=== PATIENT | male | born 1960 | race Caucasian/White ===

== ENCOUNTER 2018-05-10 07:10 | Day surgery (SDC) | payer BC, OTHER ==
[2018-05-10] MEDS ORDERED: Propofol 200 MG/20 ML SDV IV ONE (07:11)
[2018-05-10] MEDS ORDERED: Sodium Chloride 0.9% 10 ML Syringe FLUSH PRN (07:25)
[2018-05-10] MEDS ORDERED: Lactated Ringers 1,000 ML IV SCH (07:25)
--- NOTE | 2018-05-10 09:48 | PCM.OPNOTE ---
- General Post-Op/Procedure Note Date of Surgery/Procedure: 05/10/18 Operative Procedure(s): c scope Findings: normal exam Pre Op Diagnosis: screening for colon cancer Post-Op Diagnosis: Same Anesthesia Technique: MAC Primary Surgeon: Scot Curiel Anesthesia Provider: Juancho Alonso Pathology: none Complications: None Condition: Good Free Text/Narrative:: see dictation
--- NOTE | 2018-05-10 10:36 | OR ---
DATE OF OPERATION: 05/10/2018 SURGEON: Scot Curiel MD PROCEDURE PERFORMED: Colonoscopy. PREOPERATIVE DIAGNOSIS: Need for screening colonoscope. POSTOPERATIVE DIAGNOSIS: Normal colon. INDICATIONS FOR PROCEDURE: This is a 58-year-old white male who presents for his initial screening C-scope. He was offered and accepted the same. DESCRIPTION OF OPERATION: After an excellent IV sedation was administered, digital rectal exam was performed. No marked abnormality was noted. Flexible colonoscope was inserted and advanced to the cecum. Prep was excellent. The following findings were noted. Ascending colon, unremarkable. Transverse colon, unremarkable. Descending colon, unremarkable. Sigmoid and rectum, unremarkable. Colon was deflated. Scope was removed. RECOMMENDATIONS: Repeat scope in 10 years. /[id number] /SALVATOREL
[2018-05-10 10:57] VITALS: BP 148/94
== END 2018-05-10 10:58 | disposition home or self-care (01) ==
LOC: FB.SDS 07:10
PROVIDERS: ATTEND Surgery
DX: Z12.11 Encounter for screening for malignant neoplasm of colon (principal); I25.10 Atherosclerotic heart disease of native coronary artery without angina pectoris; G47.30 Sleep apnea, unspecified; E78.00 Pure hypercholesterolemia, unspecified; G40.909 Epilepsy, unspecified, not intractable, without status epilepticus; I26.99 Other pulmonary embolism without acute cor pulmonale; Z79.2 Long term (current) use of antibiotics; Z79.899 Other long term (current) drug therapy; Z79.82 Long term (current) use of aspirin
CPT/HCPCS: 45378; 93005; J2001; J2704; J7120

== ENCOUNTER 2018-09-09 12:55 | Emergency (ER) | payer OTHER ==
[2018-09-09] MEDS: Nitroglycerin 0.4 MG Tab.SL SL PRN ×3 (13:20→13:42)
[2018-09-09] MEDS ORDERED: Sodium Chloride 0.9% 1,000 ML IV SCH (13:20)
[2018-09-09] MEDS ORDERED: Sodium Chloride 0.9% 10 ML Syringe FLUSH PRN ×2 (13:28→13:42)
[2018-09-09] MEDS ORDERED: Aspirin 81 MG Tab.Chew PO ONE (13:28)
[2018-09-09] MEDS ORDERED: Heparin Sodium 5,000 Units/ML Vial IVPUSH ONE (13:49)
[2018-09-09] MEDS ORDERED: Heparin Sodium/0.45% NaCl 25,000 UNITS/500 ML BAG IV ONE (13:52)
[2018-09-09] MEDS ORDERED: Heparin Sodium 5,000 Units/ML Vial ONE (13:55)
[2018-09-09] MEDS ORDERED: Nitroglycerin/D5W 25 MG/250 ML BOTTLE IV SCH (14:00)
--- NOTE | 2018-09-09 14:50 | EDM.PDOC ---
ED HPI GENERAL MEDICAL PROBLEM - General Chief Complaint: Chest Pain Stated Complaint: SOB, CHEST PAIN Time Seen by Provider: 09/09/18 13:25 Source of Information: Reports: Patient, Family History Limitations: Reports: No Limitations - History of Present Illness INITIAL COMMENTS - FREE TEXT/NARRATIVE: 58-year-old male with history of coronary artery disease with recent angioplasty and stent placement 3 at the beginning of August who reports that since he has in home following the stent placement he has had fatigue and he has had dyspnea on exertion in that he avoids going up hills because of shortness of breath and some chest tightness that he develops with this. Yesterday he felt more fatigued than usual but no chest discomfort or shortness of breath and this morning when he awoke at 5 AM he was feeling more fatigued with some feelings of shortness of breath. At approximately 8 AM today while doing some work, he developed a tightness across his chest that did not seem to go away with rest and it has progressively worsened since that time to become associated with worse difficulty breathing. He also reports that his symptoms progressed to the point that he felt near syncopal. His brother took him home from work and they called the stone engraver at [facility] and they told him to come to the emergency department for evaluation. On arrival here, he reports his chest is about a 5/10. There is no radiation to his back, neck or arms. He also feels somewhat short of breath even at rest. No diaphoresis. Mild nausea earlier associated with his near syncopal period. No nausea now and no vomiting. He has had an IV established, has been given aspirin by mouth and has been given one sublingual nitroglycerin. While I am in the room evaluating the patient, he reports that his pain has increased to a 7/10. His EKG was repeated at this point and we continued giving sublingual nitroglycerin. There are no other associated signs or symptoms. There are no other modifying factors. Onset: Other (Yesterday with worsening fatigue and today at 8 AM with chest tightness that has progressively worsened.) Duration: Getting Worse Location: Reports: Chest Quality: Reports: Ache, Pressure Severity: Moderate Improves with: Reports: None Worsens with: Reports: Movement (/Activity) Context: Reports: Activity, Other (But now at rest with same symptoms) L anterior chest Pain Score (Numeric/FACES): 7 - Related Data Allergies Allergy/AdvReac Type Severity Reaction Status Date / Time No Known Allergies Allergy Verified 09/09/18 13:17 Home Meds: Home Meds Acetaminophen [Tylenol Extra Strength] 1,000 mg PO ASDIRECTED PRN 06/22/15 [ History] Aspirin [Ecotrin EC] 325 mg PO DAILY 06/22/15 [History] Citalopram [Citalopram HBr] 40 mg PO DAILY 06/22/15 [History] LORazepam 0.5 mg PO TID PRN 06/22/15 [History] Lurasidone HCl [Latuda] 160 mg PO DAILY@1800 06/22/15 [History] Multivitamin [Men's Multi-Vitamin] 1 tab PO DAILY 06/22/15 [History] carBAMazepine [TEGretol XR] 600 mg PO BID 06/22/15 [History] Citalopram [Citalopram HBr] 20 mg PO DAILY 05/08/18 [History] Haloperidol [Haldol] 0.5 mg PO DAILY 05/08/18 [History] Metoprolol Succinate [Toprol Xl] 50 mg PO DAILY 05/08/18 [History] Nitroglycerin [Nitrostat] 0.4 mg PO ASDIRECTED PRN 05/08/18 [History] Pantoprazole 20 mg PO DAILY 05/08/18 [History] Polyethylene Glycol 3350 [MiraLAX] 17 gm PO TID PRN 05/08/18 [History] atorvaSTATin Calcium [Atorvastatin Calcium] 80 mg PO DAILY 05/08/18 [History] Aspirin 81 mg PO DAILY 05/10/18 [History] Calcium Carb/Magnesium Hydrox [Rolaids Chewable Tablet] 1 ea PO ASDIRECTED PRN 05/10/18 [History] Clopidogrel [Plavix] 75 mg PO DAILY 09/09/18 [History] cloZAPine 600 mg PO BEDTIME 09/09/18 [History] Past Medical History HEENT History: Reports: Impaired Vision Cardiovascular History: Reports: Blood Clots/VTE/DVT (History of PEs), Bypass, CAD, High Cholesterol, Hypertension, Stents Respiratory History: Reports: PE, Sleep Apnea Gastrointestinal History: Reports: Bowel Obstruction, Chronic Constipation, Other (See Below) Other Gastrointestinal History: adhesions Musculoskeletal History: Reports: Back Pain, Chronic Neurological History: Reports: Seizure, Other (See Below) Other Neuro History: epilepsy Psychiatric History: Reports: Anxiety, Depression, Psych Hospitalization(s), Psychosis, Schizophrenia Other Psychiatric History: psychisis, Endocrine/Metabolic History: Reports: Obesity/BMI 30+ - Infectious Disease History Infectious Disease History: Reports: Measles, Mumps - Past Surgical History Cardiovascular Surgical History: Reports: Coronary Artery Bypass, Coronary Artery Stent Other Cardiovascular Surgeries/Procedures: 4 vessel bypass 2015, 3 stents August GI Surgical History: Reports: Cholecystectomy, Colon, Colonoscopy, Hernia Repair /Other, Lysis of Adhesions Other GI Surgeries/Procedures: exp lap with CRYSTAL Neurological Surgical History: Reports: None Musculoskeletal Surgical History: Reports: None Social & Family History - Family History Family Medical History: Noncontributory HEENT: Reports: Macular Degeneration Cardiac: Reports: GA Respiratory: Reports: Asthma GI: Reports: None : Reports: None OBGYN: Reports: None Musculoskeletal: Reports: None Neurological: Reports: CVA Psychiatric: Reports: None Endocrine/Metabolic: Reports: None Hematologic: Reports: None Immunologic: Reports: None Dermatologic: Reports: None Oncologic: Reports: None - Tobacco Use Smoking Status *Q: Never Smoker - Caffeine Use Caffeine Use: Reports: Coffee, Soda Other Caffeine Use: PILLS - Alcohol Use Alcohol Use History: Yes Alcohol Use Frequency: Rarely - Recreational Drug Use Recreational Drug Use: No - Living Situation & Occupation Occupation: Employed (Works in a factory) Social History Comment: Here with and [id number]. ED ROS GENERAL - Review of Systems Review Of Systems: See Below Constitutional: Reports: Weakness, Fatigue HEENT: Reports: No Symptoms Respiratory: Reports: Shortness of Breath Cardiovascular: Reports: Chest Pain, Dyspnea on Exertion GI/Abdominal: Reports: Nausea. Denies: Vomiting : Reports: No Symptoms Musculoskeletal: Reports: No Symptoms Skin: Reports: No Symptoms Neurological: Reports: Other (Near syncope) Hematologic/Lymphatic: Reports: No Symptoms Immunologic: Reports: No Symptoms ED EXAM, GENERAL - Physical Exam Exam: See Below Exam Limited By: No Limitations General Appearance: Alert, WD/WN, Moderate Distress Eye Exam: Bilateral Eye: EOMI, Normal Inspection, PERRL Ears: Normal External Exam Ear Exam: Bilateral Ear: Auricle Normal Nose: Normal Inspection, Normal Mucosa, No Blood Throat/Mouth: Normal Inspection, Normal Oropharynx, Normal Voice, No Airway Compromise Head: Atraumatic, Normocephalic Neck: Normal Inspection, Supple, Non-Tender, Full Range of Motion Respiratory/Chest: No Respiratory Distress, Lungs Clear, Normal Breath Sounds, No Accessory Muscle Use, Chest Non-Tender Cardiovascular: Normal Peripheral Pulses, Regular Rate, Rhythm, No Gallop, No JVD Peripheral Pulses: 2+: Radial (L), Radial (R) GI/Abdominal: Normal Bowel Sounds, Soft, Non-Tender, No Distention, No Mass Back Exam: Normal Inspection Extremities: Normal Inspection, Normal Range of Motion, Non-Tender, No Pedal Edema, Normal Capillary Refill Neurological: Alert, Oriented, CN II-XII Intact, Normal Cognition, No Motor/ Sensory Deficits Psychiatric: Flat Affect Skin Exam: Warm, Dry, Intact, Normal Color, No Rash EKG INTERPRETATION EKG Date: 09/09/18 Time: 13:06 Rhythm: NSR Rate (Beats/Min): 73 [place]: Normal P-Wave: Present (Left atrial enlargement) QRS: Normal ST-T: Depressed QT: Prolonged Comparison: No Change (Compared to EKG performed on 04/2018, the ST segment depression and T-wave inversion in the lateral and inferior leads is maybe slightly worse.) EKG Interpretation Comments: Repeat EKG performed at 1:43 PM: Normal sinus rhythm with a rate of 72. There is a normal axis. There is a prolonged QTC. The ST segment oppression and inversions laterally and inferiorly seemed to be improved from the previous EKG performed on the same day. Course - Vital Signs Last Recorded V/S: Last Vital Signs Temp 36.6 C 09/09/18 13:00 Pulse 65 09/09/18 15:45 Resp 15 09/09/18 15:45 BP 144/85 H 09/09/18 15:45 Pulse Ox 99 09/09/18 15:45 - Orders/Labs/Meds Orders: Active Orders 24 hr Category Date Time Status EKG Documentation Completion [RC] ASDIRECTED Care 09/09/18 13:44 Active EKG Documentation Completion [RC] ASDIRECTED Care 09/09/18 15:17 Active Chest 1V Frontal [CR] Stat Exams 09/09/18 13:42 Taken Peripheral IV Insertion Adult [OM.PC] Routine Oth 09/09/18 13:42 Ordered EKG 12 Lead [EK] Routine Ther 09/09/18 13:00 Ordered EKG 12 Lead [EK] Routine Ther 09/09/18 13:45 Ordered EKG 12 Lead [EK] Routine Ther 09/09/18 15:16 Ordered Labs: Laboratory Tests 09/09/18 09/09/18 09/09/18 Range/Units 13:15 13:15 13:15 WBC 7.1 (4.5-12.0) X10-3/uL RBC 4.20 L (4.30-5.75) x10(6)uL Hgb 13.9 (13.5-17.8) g/dL Hct 39.7 (30.0-51.3) % MCV 94.4 (80-96) fL MCH 33.0 (27.7-33.6) pg MCHC 35.0 (32.2-35.4) g/dL RDW 12.9 (11.5-15.5) % Plt Count 264 (125-369) X10(3)uL MPV 7.4 (7.4-10.4) fL Neut % (Auto) 65.8 (46-82) % Lymph % (Auto) 23.5 (13-37) % [place] % (Auto) 7.2 (4-12) % Eos % (Auto) 3 (1.0-5.0) % Baso % (Auto) 0 (0-2) % Neut # (Auto) 4.7 (1.6-8.3) # Lymph # (Auto) 1.7 (0.6-5.0) # Gillespie # (Auto) 0.5 (0.0-1.3) # Eos # (Auto) 0.2 (0.0-0.8) # Baso # (Auto) 0.0 (0.0-0.2) # PT 9.9 (8.7-11.1) INR 1.02 (0.89-1.13) APTT 24.3 L (24.4-33.2) SECONDS Sodium 135 (135-145) mmol/L Potassium 4.0 (3.5-5.3) mmol/L Chloride 101 (100-110) mmol/L Carbon Dioxide 24 (21-32) mmol/L BUN 16 (7-18) mg/dL Creatinine 1.1 (0.70-1.30) mg/dL Est Cr Clr Drug Dosing 81.72 mL/min Estimated GFR (MDRD) > 60 (>60) BUN/Creatinine Ratio 14.5 (9-20) Glucose 122 H (80-116) mg/dL Calcium 8.6 (8.6-10.2) mg/dL Magnesium 1.8 (1.8-2.5) mg/dL Total Bilirubin 0.3 (0.1-1.3) mg/dL AST 35 H (5-25) IU/L ALT 36 (12-36) U/L Alkaline Phosphatase 141 H (56-112) IU/L Troponin I (<0.017-0.056) ng/mL NT-Pro-B Natriuret Pep (<=125) pg/mL Total Protein 7.0 (6.0-8.0) g/dL Albumin 3.5 (3.5-5.2) g/dL Globulin 3.5 g/dL Albumin/Globulin Ratio 1.0 Carbamazepine 12.4 H (<0.5) ug/mL 09/09/18 Range/Units 13:15 WBC (4.5-12.0) X10-3/uL RBC (4.30-5.75) x10(6)uL Hgb (13.5-17.8) g/dL Hct (30.0-51.3) % MCV (80-96) fL MCH (27.7-33.6) pg MCHC (32.2-35.4) g/dL RDW (11.5-15.5) % Plt Count (125-369) X10(3)uL MPV (7.4-10.4) fL Neut % (Auto) (46-82) % Lymph % (Auto) (13-37) % Gilles[place] % (Auto) (4-12) % Eos % (Auto) (1.0-5.0) % Baso % (Auto) (0-2) % Neut # (Auto) (1.6-8.3) # Lymph # (Auto) (0.6-5.0) # Gillespie # (Auto) (0.0-1.3) # Eos # (Auto) (0.0-0.8) # Baso # (Auto) (0.0-0.2) # PT (8.7-11.1) INR (0.89-1.13) APTT (24.4-33.2) SECONDS Sodium (135-145) mmol/L Potassium (3.5-5.3) mmol/L Chloride (100-110) mmol/L Carbon Dioxide (21-32) mmol/L BUN (7-18) mg/dL Creatinine (0.70-1.30) mg/dL Est Cr Clr Drug Dosing mL/min Estimated GFR (MDRD) (>60) BUN/Creatinine Ratio (9-20) Glucose (80-116) mg/dL Calcium (8.6-10.2) mg/dL Magnesium (1.8-2.5) mg/dL Total Bilirubin (0.1-1.3) mg/dL AST (5-25) IU/L ALT (12-36) U/L Alkaline Phosphatase (56-112) IU/L Troponin I 0.019 (<0.017-0.056) ng/mL NT-Pro-B Natriuret Pep 468 H (<=125) pg/mL Total Protein (6.0-8.0) g/dL Albumin (3.5-5.2) g/dL Globulin g/dL Albumin/Globulin Ratio Carbamazepine (<0.5) ug/mL Meds: Medications Discontinued Medications Generic Name Dose Route Start Last Admin Trade Name Joshuaq PRN Reason Stop Dose Admin Aspirin 243 mg 09/09/18 13:28 09/09/18 13:31 Aspirin PO 09/09/18 13:29 243 mg ONETIME ONE Administration Heparin Sodium (Porcine) 4,000 units 09/09/18 13:49 09/09/18 14:07 Heparin Sodium IVPUSH 09/09/18 13:50 4,000 units .BOLUS ONE Administration Heparin Sodium (Porcine) Confirm 09/09/18 13:55 09/09/18 14:13 Heparin Sodium Administered 09/09/18 13:56 Not Given Dose 5,000 units .ROUTE .STK-MED ONE Sodium Chloride 1,000 mls @ 0 mls/hr 09/09/18 13:20 09/09/18 13:25 Normal Saline IV 09/13/18 13:29 30 mls/hr ASDIRECTED ALEJANDRO Administration KVO Heparin Sodium/Sodium Chloride 25,000 units in 500 mls @ 20.018 mls/hr 13:52 09/09/18 14:10 Heparin 25,000 Units In 1/2 Ns 500 Ml IV 09/10/18 14:50 9.43 units/kg/hr ONETIME ONE 20.018 mls/hr Administration 9.43 UNITS/KG/HR Nitroglycerin/Dextrose 25 mg in 250 mls @ 6 mls/hr 09/09/18 14:00 09/09/18 14 :12 Nitroglycerin 25 Mg/D5w 250 Ml IV 5 mcg/min TITRATE ALEJANDRO 3 mls/hr Administration Protocol 10 MCG/MIN Nitroglycerin 0.4 mg 09/09/18 13:29 09/09/18 13:42 Nitrostat SL 0.4 mg Q5M PRN Administration Chest Pain Sodium Chloride 10 ml 09/09/18 13:28 Saline Flush FLUSH ASDIRECTED PRN Keep Vein Open Sodium Chloride 10 ml 09/09/18 13:42 Saline Flush FLUSH ASDIRECTED PRN Keep Vein Open - Radiology Interpretation Free Text/Narrative:: Portable chest x-ray shows some increased pulmonary vascularity. - Re-Assessments/Exams Free Text/Narrative Re-Assessment/Exam: 09/09/18 14:13: Patient is currently chest pain-free. This is after the patient has been given 3 sublingual nitroglycerin and placed on a nitroglycerin drip at 5 mcg/m and is remaining chest pain-free with this. His blood pressure is improved and he is feeling much better he appears more bright and interactive. 09/09/18 14:35: Patient remains chest pain-free. He has been vitally stable. No more shortness of breath. No weakness or dizziness. No nausea. With the patient having dynamic EKG changes, recent angioplasty with stents 3 and 2 lesions that were reported to be potential problems for the future and with his chest pain pattern consistent with an acute coronary syndrome, I feel that he will need admission and he will need cardiology specially services which are not available at [facility] and will need to be transferred for those services. His stone engraver is through [facility] in [place] and the family would want me to discuss the patient's case with [facility]. 09/09/18 14:50: I discussed patient's case with Dr. Warren, hospitalist at [facility] in [place], and he has agreed to accept the patient in transfer. The patient is currently on a nitroglycerin drip and a heparin drip via ACS guidelines. He has been given a heparin bolus of 4000 units and has been given aspirin 243 mg by mouth. He remains chest pain-free at this point. His vitally stable. He will be transferred to [facility] via ambulance for direct admission. Departure - Departure Time of Disposition: 15:20 Disposition: DC/Tfer to [facility] 02 Reason for Transfer *Q: Other (Acute coronary syndrome with recent angioplasty and stents and 2 remaining lesions of some concern that were not addressed at the beginning of this month.) Condition: Critical (Guarded) Clinical Impression: Acute coronary syndrome, Mild congestive heart failure, Acute electrocardiogram changes Referrals: Tnaner Banda MD [Primary Care Provider] - Forms: ED Department Discharge - My Orders Last 24 Hours: My Active Orders 09/09/18 13:00 EKG 12 Lead [EK] Routine 09/09/18 13:42 Chest 1V Frontal [CR] Stat Peripheral IV Insertion Adult [OM.PC] Routine 09/09/18 13:44 EKG Documentation Completion [RC] ASDIRECTED 09/09/18 13:45 EKG 12 Lead [EK] Routine 09/09/18 15:16 EKG 12 Lead [EK] Routine 09/09/18 15:17 EKG Documentation Completion [RC] ASDIRECTED - Assessment/Plan Last 24 Hours: My Active Orders 09/09/18 13:00 EKG 12 Lead [EK] Routine 09/09/18 13:42 Chest 1V Frontal [CR] Stat Peripheral IV Insertion Adult [OM.PC] Routine 09/09/18 13:44 EKG Documentation Completion [RC] ASDIRECTED 09/09/18 13:45 EKG 12 Lead [EK] Routine 09/09/18 15:16 EKG 12 Lead [EK] Routine 09/09/18 15:17 EKG Documentation Completion [RC] ASDIRECTED
[2018-09-09 20:13] VITALS: BP 144/85
--- NOTE | 2018-09-10 08:50 | CR ---
INDICATION: Chest pain. CHEST ONE VIEW: Two AP upright portable views of the chest were obtained and compared with 06/22/15 again revealing the heart to be normal in size and shape post median sternotomy. An active infiltrate or effusion was not identified. Overlying EKG leads are noted. IMPRESSION: No acute process. Interval CABG surgery noted. MTDD
== END 2018-09-09 16:07 ==
LOC: FB.ED 12:55
DX: I24.9 Acute ischemic heart disease, unspecified (principal); I11.0 Hypertensive heart disease with heart failure; I50.9 Heart failure, unspecified; R94.31 Abnormal electrocardiogram [ECG] [EKG]; I25.10 Atherosclerotic heart disease of native coronary artery without angina pectoris; Z95.1 Presence of aortocoronary bypass graft; Z79.82 Long term (current) use of aspirin; Z79.899 Other long term (current) drug therapy; E66.9 Obesity, unspecified; Z95.5 Presence of coronary angioplasty implant and graft; Z90.49 Acquired absence of other specified parts of digestive tract
CPT/HCPCS: 36415; 71045; 80053; 80156; 83735; 83880; 84484; 85025; 85610; 85730; 93005; 96361; 96365; 96366; 96368; 96376; 99285; A9270; J1644; J3490; J7030

== ENCOUNTER 2020-12-06 09:30 | Emergency (ER) | payer OTHER ==
--- NOTE | 2020-12-06 10:34 | EDM.PDOC ---
ED HPI GENERAL MEDICAL PROBLEM - General Chief Complaint: Syncope Stated Complaint: ??? Time Seen by Provider: 12/06/20 09:30 Source of Information: Reports: Patient, Family History Limitations: Reports: Altered Mental Status - History of Present Illness INITIAL COMMENTS - FREE TEXT/NARRATIVE: c/o syncope h/o szs, no szs for years, on carbamazepine which he has been taking regularly works at [employer] 10d ago at work he saw everything go white and was lightheaded, was send home from work, went to clinic and saw Dr Frye (PCP Dr Banda), Na 126 and advised to go on low salt diet and not to work for several days, returned to work Wed and Brandi last week (4 and 5d ago) and and co-worker reports he felt fine he went to their [place] this weekend and packed up his trailer, went to [place] yesterday, said he was fine this weekend, ate 3 meals yesterday, went to bed at 8p as usual, alarm went off at 4a today as usual, up at 4:30a, clocked into work at 6a, had oatmeal to eat and Gatorade to drink apparently was feeling okay when arrived at work, on his feet, moving pallets, he "face planted", co-worker ran out of her office and he was being dragged to a chair, no shaking, was asked "are you doing okay", after 10-15 seconds he slowly said "I am okay" no vitals obtained at scene lost 30 lbs in 3m here with and co-worker confused here, gets times mixed up, answers slowly, appears postictal no definite sxs here, holding hand across epigastrium, gives a vague c/o stomach "feeling on edge", denies pain, no f/c/d, no n/v, no sob has had COVID vax, never had COVID has had CABG x 4 3y ago, has had stent x 2 since then - Related Data Allergies Allergy/AdvReac Type Severity Reaction Status Date / Time No Known Allergies Allergy Verified 09/09/18 13:17 Home Meds: Home Meds Acetaminophen [Tylenol Extra Strength] 1,000 mg PO ASDIRECTED PRN 06/22/15 [History] Aspirin [Ecotrin EC] 325 mg PO DAILY 06/22/15 [History] Citalopram [Citalopram HBr] 40 mg PO DAILY 06/22/15 [History] LORazepam 0.5 mg PO TID PRN 06/22/15 [History] Lurasidone [Latuda] 160 mg PO DAILY@1800 06/22/15 [History] Multivitamin [Men's Multi-Vitamin] 1 tab PO DAILY 06/22/15 [History] carBAMazepine [TEGretol XR] 600 mg PO BID 06/22/15 [History] Citalopram [Citalopram HBr] 20 mg PO DAILY 05/08/18 [History] Metoprolol Succinate [Toprol Xl] 50 mg PO DAILY 05/08/18 [History] Nitroglycerin [Nitrostat] 0.4 mg PO ASDIRECTED PRN 05/08/18 [History] Pantoprazole 20 mg PO DAILY 05/08/18 [History] atorvaSTATin Calcium [Atorvastatin Calcium] 80 mg PO DAILY 05/08/18 [History] haloperidoL [Haldol] 0.5 mg PO DAILY 05/08/18 [History] polyethylene glycoL 3350 [MiraLAX] 17 gm PO TID PRN 05/08/18 [History] Aspirin 81 mg PO DAILY 05/10/18 [History] Calcium Carb/Magnesium Hydrox [Rolaids Chewable Tablet] 1 ea PO ASDIRECTED PRN 05/10/18 [History] Clopidogrel [Plavix] 75 mg PO DAILY 09/09/18 [History] cloZAPine 600 mg PO BEDTIME 09/09/18 [History] Past Medical History HEENT History: Reports: Impaired Vision Cardiovascular History: Reports: Blood Clots/VTE/DVT (History of PEs), Bypass, CAD, High Cholesterol, Hypertension, Stents Respiratory History: Reports: PE, Sleep Apnea Gastrointestinal History: Reports: Bowel Obstruction, Chronic Constipation, Other (See Below) Other Gastrointestinal History: adhesions Genitourinary History: Reports: None Musculoskeletal History: Reports: Back Pain, Chronic Neurological History: Reports: Seizure, Other (See Below) Other Neuro History: epilepsy Psychiatric History: Reports: Anxiety, Depression, Psych Hospitalization(s), Psychosis, Schizophrenia Other Psychiatric History: psychisis, Endocrine/Metabolic History: Reports: Obesity/BMI 30+ Hematologic History: Reports: None Immunologic History: Reports: None Oncologic (Cancer) History: Reports: None - Infectious Disease History Infectious Disease History: Reports: Measles, Mumps - Past Surgical History Cardiovascular Surgical History: Reports: Coronary Artery Bypass, Coronary Artery Stent Other Cardiovascular Surgeries/Procedures: 4 vessel bypass 2016, 3 stents August 21, 2018 GI Surgical History: Reports: Cholecystectomy, Colon, Colonoscopy, Hernia Repair/Other, Lysis of Adhesions Other GI Surgeries/Procedures: exp lap with CRYSTAL Neurological Surgical History: Reports: None Musculoskeletal Surgical History: Reports: None Social & Family History - Family History Family Medical History: No Pertinent Family History HEENT: Reports: Macular Degeneration Cardiac: Reports: [place] Respiratory: Reports: Asthma GI: Reports: None : Reports: None OBGYN: Reports: None Musculoskeletal: Reports: None Neurological: Reports: CVA Psychiatric: Reports: None Endocrine/Metabolic: Reports: None Hematologic: Reports: None Immunologic: Reports: None Dermatologic: Reports: None Oncologic: Reports: None - Caffeine Use Caffeine Use: Reports: Coffee, Soda Other Caffeine Use: PILLS - Living Situation & Occupation Occupation: Employed (Works in a factory) ED ROS GENERAL - Review of Systems Review Of Systems: See Below Constitutional: Reports: Weight Loss. Denies: Fever, Chills, Diaphoresis HEENT: Reports: No Symptoms Respiratory: Reports: No Symptoms Cardiovascular: Reports: Syncope. Denies: Chest Pain, Palpitations Endocrine: Reports: No Symptoms GI/Abdominal: Reports: No Symptoms. Denies: Abdominal Pain, Nausea, Vomiting : Reports: No Symptoms Musculoskeletal: Reports: No Symptoms Skin: Reports: No Symptoms Neurological: Reports: No Symptoms Psychiatric: Reports: No Symptoms Hematologic/Lymphatic: Reports: No Symptoms Immunologic: Reports: No Symptoms - Physical Exam Exam: See Below Exam Limited By: Other (mild confused) General Appearance: Alert, WD/WN, No Apparent Distress, Other (good hydration). No: Anxious Ears: Normal External Exam, Normal Canal, Hearing Grossly Normal Nose: Normal Inspection Throat/Mouth: Normal Inspection, Normal Lips, Normal Teeth, Normal Voice, No Airway Compromise Head Exam: Atraumatic, Normocephalic Neck: Normal Inspection, Supple, Non-Tender, Full Range of Motion. No: Lymphadenopathy (R), Lymphadenopathy (L) Respiratory/Chest: No Respiratory Distress, Lungs Clear, Normal Breath Sounds, No Accessory Muscle Use Cardiovascular: Regular Rate, Rhythm, No Edema, No JVD GI/Abdominal: Normal Bowel Sounds, Soft, Non-Tender, No Organomegaly Neuro Exam (Abbreviated): Alert, CN II-XII Intact, No Motor/Sensory Deficits Back Exam: Normal Inspection, Full Range of Motion Extremities: Normal Inspection, Non-Tender, No Pedal Edema, Normal Capillary Refill Psychiatric: Normal Affect, Normal Mood Skin Exam: Warm, Dry, Intact, Normal Color, No Rash Course - Vital Signs Last Recorded V/S: Last Vital Signs Temp 36.4 C 12/06/20 10:26 Pulse 84 12/06/20 10:26 Resp 18 12/06/20 10:26 BP 140/91 H 12/06/20 10:26 Pulse Ox 96 12/06/20 10:26 - Orders/Labs/Meds Orders: Active Orders 24 hr Category Date Time Status EKG 12 Lead [EK] Routine Ther 12/06/20 10:18 Ordered Labs: Laboratory Tests 12/06/20 12/06/20 12/06/20 Range/Units 10:20 10:20 10:20 WBC 6.1 (3.2-10.1) x10-3/uL RBC 4.08 (3.90-5.90) x10(6)uL Hgb 13.0 (12.9-17.7) g/dL Hct 38.1 L (38.3-50.1) % MCV 93.6 (80.8-98.7) fL MCH 31.9 (27.0-33.3) pg MCHC 34.1 (28.7-35.3) g/dL RDW 13.4 (12.4-15.0) % Plt Count 229 (117-477) x10(3)uL MPV 6.4 L (6.7-11.0) fL Neut % (Auto) 77.3 H (40.3-71.8) % Lymph % (Auto) 14.2 L (15.8-45.3) % [place] % (Auto) 7.2 (5.5-15.2) % Eos % (Auto) 0.6 (0.1-6.8) % Baso % (Auto) 0.7 (0.3-3.8) % Neut # (Auto) 4.7 (1.7-6.9) x10-3/uL Lymph # (Auto) 0.9 (0.5-4.5) x10-3/uL [place] # (Auto) 0.4 (0.0-1.2) x10-3/uL Eos # (Auto) 0.0 (0.0-0.6) x10-3/uL Baso # (Auto) 0.0 (0.0-0.3) x10-3/uL PT 10.4 (9.0-11.1) sec INR 0.96 L (1.00-1.24) Sodium 135 (135-145) mmol/L Potassium 4.1 (3.5-5.3) mmol/L Chloride 100 (100-110) mmol/L Carbon Dioxide 23 (21-32) mmol/L BUN 16 (7-18) mg/dL Creatinine 1.1 (0.70-1.30) mg/dL Est Cr Clr Drug Dosing 79.70 mL/min Estimated GFR (MDRD) > 60 (>60) BUN/Creatinine Ratio 14.5 (9-20) Glucose 86 (80-116) mg/dL Calcium 8.2 L (8.6-10.2) mg/dL Total Bilirubin 0.4 (0.1-1.3) mg/dL AST 54 H D (5-25) IU/L ALT 48 H D (12-36) U/L Alkaline Phosphatase 136 H (56-112) IU/L Troponin I (4.0-60.3) pg/mL C-Reactive Protein (0.5-0.9) mg/dL NT-Pro-B Natriuret Pep (<=125) pg/mL Total Protein 6.5 (6.0-8.0) g/dL Albumin 3.3 (3.2-4.6) g/dL Globulin 3.2 g/dL Albumin/Globulin Ratio 1.0 TSH, Ultra Sensitive (0.36-3.74) IU/mL Urine Color (YELLOW) Urine Appearance (CLEAR) Urine pH (5.0-6.5) Ur Specific [place] (1.010-1.025) Urine Protein (NEGATIVE) mg/dL Urine Glucose (UA) (NORMAL) mg/dL Urine Ketones (NEGATIVE) mg/dL Urine Occult Blood (NEGATIVE) Urine Nitrite (NEGATIVE) Urine Bilirubin (NEGATIVE) Urine Urobilinogen (NEGATIVE) mg/dL Ur Leukocyte Esterase (NEGATIVE) Urine WBC (0-5) Ur Squamous Epith Cells (NS,R,O) Urine Bacteria (NS) Carbamazepine 12.8 H (<0.5) ug/mL SARS-CoV-2 RNA (DEZ) (NEGATIVE) 12/06/20 12/06/20 12/06/20 Range/Units 10:20 10:20 10:32 WBC (3.2-10.1) x10-3/uL RBC (3.90-5.90) x10(6)uL Hgb (12.9-17.7) g/dL Hct (38.3-50.1) % MCV (80.8-98.7) fL MCH (27.0-33.3) pg MCHC (28.7-35.3) g/dL RDW (12.4-15.0) % Plt Count (117-477) x10(3)uL MPV (6.7-11.0) fL Neut % (Auto) (40.3-71.8) % Lymph % (Auto) (15.8-45.3) % [place] % (Auto) (5.5-15.2) % Eos % (Auto) (0.1-6.8) % Baso % (Auto) (0.3-3.8) % Neut # (Auto) (1.7-6.9) x10-3/uL Lymph # (Auto) (0.5-4.5) x10-3/uL [place] # (Auto) (0.0-1.2) x10-3/uL Eos # (Auto) (0.0-0.6) x10-3/uL Baso # (Auto) (0.0-0.3) x10-3/uL PT (9.0-11.1) sec INR (1.00-1.24) Sodium (135-145) mmol/L Potassium (3.5-5.3) mmol/L Chloride (100-110) mmol/L Carbon Dioxide (21-32) mmol/L BUN (7-18) mg/dL Creatinine (0.70-1.30) mg/dL Est Cr Clr Drug Dosing mL/min Estimated GFR (MDRD) (>60) BUN/Creatinine Ratio (9-20) Glucose (80-116) mg/dL Calcium (8.6-10.2) mg/dL Total Bilirubin (0.1-1.3) mg/dL AST (5-25) IU/L ALT (12-36) U/L Alkaline Phosphatase (56-112) IU/L Troponin I 12.2 (4.0-60.3) pg/mL C-Reactive Protein < 0.2 L (0.5-0.9) mg/dL NT-Pro-B Natriuret Pep 1010 H* (<=125) pg/mL Total Protein (6.0-8.0) g/dL Albumin (3.2-4.6) g/dL Globulin g/dL Albumin/Globulin Ratio TSH, Ultra Sensitive 2.22 (0.36-3.74) IU/mL Urine Color Yellow (YELLOW) Urine Appearance Clear (CLEAR) Urine pH 6.5 (5.0-6.5) Ur Specific [place] 1.015 (1.010-1.025) Urine Protein Negative (NEGATIVE) mg/dL Urine Glucose (UA) Normal (NORMAL) mg/dL Urine Ketones Negative (NEGATIVE) mg/dL Urine Occult Blood Negative (NEGATIVE) Urine Nitrite Negative (NEGATIVE) Urine Bilirubin Negative (NEGATIVE) Urine Urobilinogen Normal (NEGATIVE) mg/dL Ur Leukocyte Esterase Negative (NEGATIVE) Urine WBC 0-5 (0-5) Ur Squamous Epith Cells Occasional (NS,R,O) Urine Bacteria Few H (NS) Carbamazepine (<0.5) ug/mL SARS-CoV-2 RNA (DEZ) (NEGATIVE) 12/06/20 Range/Units 10:52 WBC (3.2-10.1) x10-3/uL RBC (3.90-5.90) x10(6)uL Hgb (12.9-17.7) g/dL Hct (38.3-50.1) % MCV (80.8-98.7) fL MCH (27.0-33.3) pg MCHC (28.7-35.3) g/dL RDW (12.4-15.0) % Plt Count (117-477) x10(3)uL MPV (6.7-11.0) fL Neut % (Auto) (40.3-71.8) % Lymph % (Auto) (15.8-45.3) % [place] % (Auto) (5.5-15.2) % Eos % (Auto) (0.1-6.8) % Baso % (Auto) (0.3-3.8) % Neut # (Auto) (1.7-6.9) x10-3/uL Lymph # (Auto) (0.5-4.5) x10-3/uL [place] # (Auto) (0.0-1.2) x10-3/uL Eos # (Auto) (0.0-0.6) x10-3/uL Baso # (Auto) (0.0-0.3) x10-3/uL PT (9.0-11.1) sec INR (1.00-1.24) Sodium (135-145) mmol/L Potassium (3.5-5.3) mmol/L Chloride (100-110) mmol/L Carbon Dioxide (21-32) mmol/L BUN (7-18) mg/dL Creatinine (0.70-1.30) mg/dL Est Cr Clr Drug Dosing mL/min Estimated GFR (MDRD) (>60) BUN/Creatinine Ratio (9-20) Glucose (80-116) mg/dL Calcium (8.6-10.2) mg/dL Total Bilirubin (0.1-1.3) mg/dL AST (5-25) IU/L ALT (12-36) U/L Alkaline Phosphatase (56-112) IU/L Troponin I (4.0-60.3) pg/mL C-Reactive Protein (0.5-0.9) mg/dL NT-Pro-B Natriuret Pep (<=125) pg/mL Total Protein (6.0-8.0) g/dL Albumin (3.2-4.6) g/dL Globulin g/dL Albumin/Globulin Ratio TSH, Ultra Sensitive (0.36-3.74) IU/mL Urine Color (YELLOW) Urine Appearance (CLEAR) Urine pH (5.0-6.5) Ur Specific [place] (1.010-1.025) Urine Protein (NEGATIVE) mg/dL Urine Glucose (UA) (NORMAL) mg/dL Urine Ketones (NEGATIVE) mg/dL Urine Occult Blood (NEGATIVE) Urine Nitrite (NEGATIVE) Urine Bilirubin (NEGATIVE) Urine Urobilinogen (NEGATIVE) mg/dL Ur Leukocyte Esterase (NEGATIVE) Urine WBC (0-5) Ur Squamous Epith Cells (NS,R,O) Urine Bacteria (NS) Carbamazepine (<0.5) ug/mL SARS-CoV-2 RNA (DEZ) Negative (NEGATIVE) - Re-Assessments/Exams Free Text/Narrative Re-Assessment/Exam: 12/06/20 12:37 d/w Dr Siddiqui at [facility] who accepted pt in ED to ED transfer per Dr Warren pt was a small ICH at [facility] with [facility] c/w blood, small petechiae bleeds noted elsewhere at parietal and occipital carbamazepine is therapeutic, no good clinical hx for recurrent szs cause of syncope unclear, no lab evidence for CV or infectious etiology, does have inc'd BNP pt was been dizzy and lightheaded 10d ago for unclear reason pt will need further w/u for syncope and monitoring for head injury CxR 1v is neg per radiology cause of Na 126 from 10d ago is unclear Departure - Departure Time of Disposition: 12:37 Disposition: DC/Tfer to Acute Hospital 02 Condition: Fair Clinical Impression: Syncope, Head injury, acute, Traumatic intraparenchymal hemorrhage, Weight loss, Confusion, Hyponatremia, Hx of coronary artery disease, Elevated brain natriuretic peptide (BNP) level, Elevated liver function tests - Discharge Information *PRESCRIPTION DRUG MONITORING PROGRAM REVIEWED*: Not Applicable *COPY OF PRESCRIPTION DRUG MONITORING REPORT IN PATIENT VIDAL: Not Applicable Referrals: Tanner Banda MD [Primary Care Provider] - Forms: ED Department Discharge Sepsis Event Note (ED) - Focused Exam Vital Signs: Vital Signs Temp Pulse Resp BP Pulse Ox 12/06/20 10:26 36.4 C 84 18 140/91 H 96 - My Orders Last 24 Hours: My Active Orders 12/06/20 10:18 EKG 12 Lead [EK] Routine - Assessment/Plan Last 24 Hours: My Active Orders 12/06/20 10:18 EKG 12 Lead [EK] Routine
--- NOTE | 2020-12-06 12:11 | CR ---
INDICATION: Syncope. CHEST, ONE VIEW: AP upright portable view of the chest 12/06/20 was compared with 09/09/18, revealing the heart to remain normal in size and shape in this post median sternotomy patient. The aorta is slightly tortuous. Overlying EKG leads are noted. Markings in the mid to lower lung garnica are slightly prominent, likely fibrotic in nature, without a defc active infiltrate or effusion identified. Associated with the heavy markings is bronchial wall cuffing in the lower lung garnica, which may represent active peribronchial disease in addition to fibrosis and should be correlated clinically. Report was called to Dr. Haynes at approximately 1050 hours, 12/06/20. WARD
--- NOTE | 2020-12-06 12:26 | CT ---
INDICATION: Syncope. History of seizures. CT HEAD WITHOUT CONTRAST: Spiral 3.75 mm axial sections were obtained through the brain without contrast with axial, sagittal and coronal reconstruction 12/06/20 - no comparison. TOTAL EXAM DLP: 1425.39 mGy/cm. The paranasal sinuses appear well aerated. Mastoid air cells are well aerated. No cranial abnormality was suggested. No shift of midline structures was noted. Ventricles are normal to very minimally prominent. The orbits appear to be intact, Extensive calcification os noted in the vertebral arteries with some calcifications also seen in the internal carotid arteries. There is an area of patchy increased density in the temporal lobe. Etiology is indeterminate, but it appears to be compatible with a hemorrhage in that area. A definite aneurysm is not seen. Additional examination, such as CT with IV contrast - CTA or MRI with contrast may be helpful for further evaluation Additionally, there are multiple punctate areas of increased density, suggesting focal areas of hemorrhage, one in the temporal lobe on the right posterior to the large posterior to the larger area of probable hemorrhage in the right temporal lobe, One in the posterior parietal lobe on the left. One much more anteriorly in the left parietal lobe. Those are on axial image 29. There are three visualized on axial image 31 in the posterior parietal area on the right and periventricular parietal area on the left with an additional focus in the posterior parietal on the right on axial image 31. No other findings to suggest hemorrhage or hematoma was seen. No definite aneurysm is identified. Additional abnormalities of density include a focal area of decreased density in the anterior limb of the right internal capsule near the genu. Additionally, there are white matter changes, some periventricular, bilaterally, compatible with moderate microvascular disease. IMPRESSION: 1. Multiple foci of hemorrhage, including the largest in the right temporal area. Etiology indeterminate. 2. Cerebrovascular disease with white matter changes, compatible with microvascular disease. Report was called to Dr. Haynes at 1050 hours, 12/06/20. [facility]ENTERAida
[2020-12-06] MEDS ORDERED: niCARdipine HCl 25 MG in Sodium Chloride 0.9% 240 ML IV SCH (13:00)
[2020-12-06 16:19] VITALS: BP 194/123; PULSE 69
--- NOTE | 2020-12-08 19:36 | PCM.EKG ---
#1 Interpretation EKG Date: 12/06/20 Rhythm: NSR [place]: Normal P-Wave: Present QRS: Normal Comparison: NA - No Prior EKG
== END 2020-12-06 13:20 ==
LOC: FB.ED 09:30
DX: S06.369A Traumatic hemorrhage of cerebrum, unspecified, with loss of consciousness of unspecified duration, initial encounter (principal); R55 Syncope and collapse; I25.10 Atherosclerotic heart disease of native coronary artery without angina pectoris; E78.00 Pure hypercholesterolemia, unspecified; R41.0 Disorientation, unspecified; R63.4 Abnormal weight loss; I10 Essential (primary) hypertension; E66.9 Obesity, unspecified; Z95.1 Presence of aortocoronary bypass graft; Z79.82 Long term (current) use of aspirin; Z79.899 Other long term (current) drug therapy; Z20.822 Contact with and (suspected) exposure to COVID-19; Z68.28 Body mass index [BMI] 28.0-28.9, adult; Z86.718 Personal history of other venous thrombosis and embolism; W18.09XA Striking against other object with subsequent fall, initial encounter; Y99.0 Civilian activity done for income or pay
CPT/HCPCS: 36415; 70450; 71045; 80053; 80156; 81001; 83880; 84443; 84484; 85025; 85610; 86140; 93005; 96374; 99285-25; J7050; U0002